=== PATIENT | female | born 1970 | race Caucasian/White ===

== ENCOUNTER 2023-05-03 20:18 | Outpatient (REF) | payer OTHER, SELFPAY ==
[2023-05-09 11:08] LABS: Age Gdln ACOG Testing Note (.); HPV Aptima Negative (Negative); IGP, Aptima HPV, rfx 16/18,45 Note (.)
== END 2023-05-03 20:19 | disposition home or self-care (01) ==
LOC: LAB 20:18
PROVIDERS: Visit Provider Obstetrics & Gynecology
DX: Z12.4 Encounter for screening for malignant neoplasm of cervix (principal)
CPT/HCPCS: 87624; G0145

== ENCOUNTER 2023-05-26 07:38 | Outpatient (OUT) | payer OTHER, SELFPAY ==
--- NOTE | 2023-05-26 07:40 | MM_ITS ---
Patient Name: BAIRON RUIZ MR#: [id number] : 1970 Exam Date: 05/26/2023 Ordering Doctor: DR Sal New . RADIOLOGY REPORT PROCEDURE: MM TOMOSYNTHESIS SCREENING BI COMPARISON: MG MAMM SCREEN 3D JARED CAD, 02/16/2022. MG MAMM SCREEN JARED W CAD, 01/14/2019. MG MAMM SCREEN JARED W CAD, 01/03/2017. MAMMO JARED DX, 12/21/2015. INDICATIONS: Screening Calculator Name NCI Breast Cancer Risk Assessment Tool 5 Year Breast Cancer Risk Not Reported. Lifetime Breast Cancer Risk Not Reported. Personal Breast Cancer No Personal Ovarian Cancer No Treatments None Family Cancers None LOCATION: [facility] BREAST COMPOSITION: Almost entirely fatty. FINDINGS: DIAGNOSTIC CATEGORY 2--BENIGN FINDING: RIGHT BREAST: No significant suspicious finding. Scattered benign-appearing lymph nodes are present. No significant change has occurred. LEFT BREAST: No significant suspicious finding. No significant change has occurred. RECOMMENDATIONS: ROUTINE MAMMOGRAM AND CLINICAL EVALUATION IN 12 MONTHS. PLEASE NOTE: A NORMAL MAMMOGRAM DOES NOT EXCLUDE THE POSSIBILITY OF BREAST CANCER. A CLINICALLY SUSPICIOUS PALPABLE LUMP SHOULD BE BIOPSIED. Dictated by: Dequan Vincent M.D. on 05/26/2023 at 10:53 Approved by: Dequan Vincent M.D. on 05/26/2023 at 10:57
--- OUTSIDE RECORDS SUMMARY | 2023-05-26 07:42 | XMS_ITS | CCD ---
Author Name Unknown Address [id number] [place] [address] Organization [facility] Care Team Providers Care Diazo Technician Name Role Phone TIFFANIE MASTERS Admitting Unavailable TIFFANIE MASTERS Attending Unavailable REQUEST, DR BURDICK LISTED Primary Care Unavaila ble Jamal Vincent Consulting Unavailable TIFFANIE MASTERS Consulting Unavailable JOSHUA ., DR CURIEL Admitting Unavailable JOSHUA ., DR CURIEL Attending Unavailable REQUEST, DR BURDICK LISTED Primary Care Unavaila ble JOSHUA ., DR CURIEL Consulting Unavailable Jamal Vincent Consulting Unavailable JOSHUA ., DR CURIEL Admitting Unavailable JOSHUA ., DR CURIEL Attending Unavailable REQUEST, DR BURDICK LISTED Primary Care Unavaila ble STANFORD, DR AZEB Hodges Consulting Unavailable JOSHUA ., DR CURIEL Consulting Unavailable JOSHUA ., DR CURIEL Admitting Unavailable JOSHUA ., DR CURIEL Attending Unavailable REQUEST, DR BURDICK LISTED Primary Care Unavaila ble JOSHUA ., DR CURIEL Consulting Unavailable Adali Jean MD Primary Care Provider Guerrero LICENSED SOCIAL WORKER, Tiffanie Beebe Unavailable TIFFANIE MASTERS Attending Unavailab MOISÉS Harry Attending Unavailable JOHNNY MATTSON Attending Unavailable OUMOU CORTES Attending Unavailable TIFFANIE MASTERS Referring Unavailab JOHNNY Dickerson Attending Unavailable JOHNNY MATTSON Referring Unavailable JOHNNY MATTSON Attending Unavailable Allergies Allergy Classification Reported Allergen(s) Allergy Type Date of Onset Reaction(s) Facility (1 source) bee venom Drug allergy (disorder) [facility] (1 source) Codeine Drug Allergy 1 [facility] (1 source) Hornet venom Drug allergy (disorder) [facility] (1 source) Nalbuphine Drug Allergy 5 [facility] (1 source) oxyCODONE Drug Allergy 5 [facility] (1 source) strawberry allergenic extract Drug Allergy [facility] (1 source) wasp venom Drug allergy (disorder) [facility] (1 source) yellow jacket venom protein Drug Allergy [facility] (7 sources) Honey bee venom Allergy to substance 0 Shortness of breath [facility] (7 sources) Nalbuphine Drug Allergy 9 [facility] (7 sources) Fulda Allergy to substance 0 Hives [facility] Medications Current Medications Medication Drug Class(es) Dates Sig (Normalized) Sig (Original) [id number] 200 actuat albuterol 0.09 mg/actuat metered dose inhaler (7 sources) beta2-Adrenergic Agonist Start: 08-19-2020 albuterol HFA 90 mcg/act inhaler every 4 (four) hours. 0 08/19/2020 Active DULoxetine 30 mg delayed release oral capsule (7 sources) Serotonin and Norepinephrine Reuptake Inhibitor Start: 05-09-2023 End: 05-08-2024 take 1 capsule by mouth in the morning DULoxetine (Cymbalta) [address] capsule Indications: Neurogenic pain Take 1 capsule (30 mg) by mouth in the morning. Do not crush or chew.. 30 capsule 2 05/09/2023 05/08/2024 Active [id number] 0.3 ml EPINEPHrine 1 mg/ml auto-injector (7 sources) alpha-Adrenergic Agonist, beta-Adrenergic Agonist, Catecholamine Start: 07-19-2021 EPINEPHrine (Epipen) 0.3 MG/0.3ML injection syringe 1 (one) time each day at the same time. 0 07/19/2021 Active etodolac 400 mg oral tablet (3 sources) Nonsteroidal Anti-inflammatory Drug Start: 02-01-2023 End: 05-17-2023 take 1 tablet by mouth twice daily as needed etodolac (Lodine) 400 MG tablet Take 400 mg by mouth 2 (two) times a day as needed 0 02/01/2023 05/17/2023 Discontinued gabapentin 300 mg oral capsule (3 sources) Anti-epileptic Agent Start: 08-29-2022 End: 05-17-2023 take 1 capsule by mouth once gabapentin (Neurontin) 300 MG capsule Indications: Spondylosis Take 1 capsule (300 mg) by mouth every 12 (twelve) hours. 60 capsule 0 08/29/2022 05/17/2023 Discontinued 3 ml liraglutide 6 mg/ml pen injector (3 sources) GLP-1 Receptor Agonist Start: 04-24-2023 End: 05-22-2023 inject 0.6 mg by subcutaneous injection once daily, then inject 1.2 mg by subcutaneous injection once daily, then inject 1.8 mg by subcutaneous injection once daily, then inject 2.4 mg by subcutaneous injection once daily Liraglutide -Weight Management (Saxenda) 18 MG/3ML solution pen-injector Indications: Morbid (severe) obesity due to excess calories (CMS/HCC) , Body mass index (BMI) 45.0-49.9, adult (CMS/HCC) Inject 0.6 mg under the skin Daily for 7 days, THEN 1.2 mg Daily for 7 days, THEN 1.8 mg Daily for 7 days, THEN 2.4 mg Daily for 7 days. 3 mL 0 04/24/2023 05/17/2023 Discontinued norethindrone 0.35 mg oral tablet (10 sources) Start: 01-17-2023 End: 05-02-2024 take 1 tablet by mouth once daily norethindrone (Nuha-BE) 0.35 MG tablet Indications: Encounter for surveillance of contraceptive pills Take 1 tablet (0.35 mg) by mouth 1 (one) time each day at the same time. 28 tablet 11 01/17/2023 01/17/2024 Active omeprazole 20 mg delayed release oral capsule (7 sources) Proton Pump Inhibitor Start: 05-12-2022 omeprazole (PriLOSEC) [address] capsule 1 (one) time each day at the same time. 0 05/12/2022 Active Completed/Discontinued Medications Medication Drug Class(es) Dates Sig (Normalized) Sig (Original) 2 ml sodium hyaluronate 8.4 mg/ml prefilled syringe (6 sources) Start: 05-22-2023 End: 05-22-2023 sodium hyaluronate (Gelsyn-3) injection 2 mL Start: 05-15-2023 End: 05-15-2023 sodium hyaluronate (Gelsyn-3 ) injection 2 mL Problems Active Problems Problem Classification Problem Date Documented Date Episodic/Chronic Allergic reactions (7 sources) Atopic dermatitis; Translations: [Intrinsic (allergic) eczema] Onset: 08-05-2022 08-05-2022 Chronic Anxiety disorders (7 sources) Anxiety; Translations: [Anxiety disorder, unspecified] Onset: 08-05-2022 08-05-2022 Chronic Menstrual disorders (11 sources) Excessive and frequent menstruation with regular cycle; Translations: [Menorrhagia] Onset: 11-09-2021 Chronic Osteoarthritis (3 sources) Osteoarthritis of right knee joint; Translations: [Unilateral primary osteoarthritis, right knee] 05-15-2023 Chronic Other acquired deformities (4 sources) Spondylolisthesis, site unspecified; Translations: [SPONDYLOLISTHESIS SITE UNSPECIFIED] Onset: 07-15-2022 Episodic Other female genital disorders (7 sources) Endometrial hyperplasia; Translations: [Endometrial hyperplasia, unspecified] Onset: 08-05-2022 08-05-2022 Chronic Other hereditary and degenerative nervous system conditions (7 sources) Restless legs; Translations: [Restless legs syndrome] Onset: 08-05-2022 08-05-2022 Chronic Other nutritional; endocrine; and metabolic disorders (7 sources) Obesity; Translations: [Obesity, unspecified] Onset: 08-05-2022 08-05-2022 Chronic Other screening for suspected conditions (not mental disorders or infectious disease) (1 source) Abnormal findings on diagnostic imaging of other specified body structures; Translations: [ABNORML FIND DX IMG OTH BODY STRUC] Onset: 11-13-2021 Chronic Other screening for suspected conditions (not mental disorders or infectious disease) (9 sources) Abnormal findings on diagnostic imaging of other parts of musculoskeletal system; Translations: [Encounter for screening mammogram for malignant neoplasm of breast] Onset: 02-07-2022 Episodic Spondylosis; intervertebral disc disorders; other back problems (20 sources) Spondylosis, unspecified; Translations: [Spondylosis] Onset: 02-10-2020 08-05-2022 Chronic Past or Other Problems Problem Classification Problem Date Documented Date Episodic/Chronic Immunizations and screening for infectious disease (1 source) Encounter for screening for human papillomavirus (HPV); Translations: [ENC SCREENING HUMAN PAPILLOMAVIRUS] Onset: 02-08-2022 Episodic Mood disorders (7 sources) Mood disorders Onset: 01-09-2023 01-09-2023 Other acquired deformities (7 sources) Retrolisthesis; Translations: [Spondylolisthesis, site unspecified] Onset: 08-05-2022 08-05-2022 Episodic Other connective tissue disease (7 sources) Other symptoms and signs involving the musculoskeletal system; Translations: [Other musculoskeletal symptoms referable to limbs] Onset: 08-05-2022 08-05-2022 Episodic Other connective tissue disease (7 sources) Fibromyalgia; Translations: [Fibromyalgia] Onset: 08-05-2022 08-05-2022 Episodic Other connective tissue disease (7 sources) Weakness of hand; Translations: [Other symptoms and signs involving the musculoskeletal system] Onset: 02-14-2023 02-14-2023 Episodic Other connective tissue disease (7 sources) Neurogenic pain; Translations: [Neuralgia and neuritis, unspecified] Onset: 02-14-2023 02-14-2023 Episodic Other non-traumatic joint disorders (7 sources) Pain in elbow; Translations: [Pain in right elbow] Onset: 02-14-2023 02-14-2023 Episodic Residual codes; unclassified (1 source) Asymptomatic menopausal state; Translations: [ASYMPTOMATIC MENOPAUSAL STATE] Onset: 02-21-2022 Episodic Spondylosis; intervertebral disc disorders; other back problems (7 sources) Low back pain; Translations: [Low back pain] Onset: 08-05-2022 08-05-2022 Episodic Results Test Name Value Interpretation Reference Range Facility L Inj/Asp: R kneeon 05-22-19 24 Reyna Crawford, ARRT 05/24/2023 11:25 AM L Inj/Asp: R knee on 05/22/2023 8:07 AM Indications: diagnostic evaluation Details: 22 G needle Medications: 2 mL sodium hyaluronate 16.8 MG/2ML Consent was given by the patient. [facility] No Panel Informationon 05-15 Medina Nichole, ARR T 05/17/2023 9:41 AM L Inj/Asp: R knee on 05/15/2023 8:28 AM Indications: pain Details: 21 G needle, lateral approach Medications: 2 mL sodium hyaluronate 16.8 MG/2ML Consent was given by the patient. [facility] MRI TRENT Espinoza CONon 2022 MRI TRENT PICHARDO W CON EXAMINATION: MRI TRENT Espinoza CON HISTORY: Monoarthritis ; acute lumbar pain; left leg pain, burning sensation, tingling; no known injury COMPARISON: MRI L-spine 08/21/2019 TECHNIQUE: Axial T1 and T2; Sagittal T1, T2, and STIR sequences. Images were performed before and after the administration of intravenous Dotarem contrast. FINDINGS: For the purposes of numbering, sagittal T2 image # 8 extends from the T12 vertebral body superiorly to the S3-S4 level inferiorly. PARASPINAL AREA: Normal with no visible mass. BONES: Right laminectomy of L4 and L5. Incidental, large hemangioma within L1 vertebral body. CORD/CAUDA EQUINA: Normal caliber, contour, and signal intensity. LUMBAR DISC LEVELS: 12-L1: No significant disc/facet abnormality, spinal stenosis, or foraminal stenosis. L1-L2: Early degenerative disc disease is present without focal protrusion or neural impingement. L2-L3: Mild central canal and bilateral foramen narrowing. Mild diffuse disc bulging, mild disc height reduction, and mild degenerative facet arthropathy. L3-L4: Mild central canal and mild-moderate bilateral foramen narrowing. Left paracentral disc extrusion 13 mm in width projecting 6 mm into the central canal and extending inferiorly to mid L4 vertebral body. The extrusion displaces the descending left L5 nerve root posteriorly. Mild disc at reduction. Moderate degenerative facet arthropathy bilaterally. L4-L5: Mild central canal and right foramen narrowing. Marked left foramen narrowing. Moderate diffuse disc bulging and moderate disc height reduction. Prior right laminectomy. Marked degenerative hypertrophy of left facet joint. L5-S1: No significant central canal narrowing. Mild right foramen narrowing. Moderate-marked left foramen narrowing. Mild diffuse disc bulging without significant disc height reduction. Prior right laminectomy. Moderate degenerative facet hypertrophy on left. IMPRESSION: 1. 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 2. L4-L5 marked left foramen narrowing. 3. L5-S1 moderate marked left foramen narrowing. Electronically authenticated by: JAMAL VINCENT Date: 2022-07-15 08:53 Normal [facility] MAMM SCREEN 3D JARED CADon 02-16-2022 MG MAMM SCREEN 3D JARED CAD Patient: LORRAINE GAGNON Exam Date: 02/16/2022 : 1970 Gender:F Ordering : DR MOISÉS LEWIS . Admission #: [id number] Family : Order #: [id number] CLICK HERE TO VIEW EXAM RADIOLOGY REPORT PROCEDURE: MAMMOGRAM SCREENING 3D BILATERAL CAD COMPARISON: MG MAMM SCREEN JARED W CAD, 01/03/2017. MG MAMM SCREEN JARED W CAD, 01/14/2019. INDICATIONS: Screening mammography Calculator Name NCI Breast Cancer Risk Assessment Tool 5 Year Breast Cancer Risk Not Reported. Lifetime Breast Cancer Risk Not Reported. Personal Breast Cancer No Personal Ovarian Cancer No Treatments None Family Cancers None LOCATION: [facility] BREAST COMPOSITION: Almost entirely fatty. FINDINGS: DIAGNOSTIC CATEGORY 1--NEGATIVE. NO CHANGE FROM COMPARISON ASSESSMENT. Scattered benign-appearing calcifications are present. Scattered benign-appearing lymph nodes are present. RIGHT BREAST: No significant suspicious finding. LEFT BREAST: No significant suspicious finding. RECOMMENDATIONS: ROUTINE MAMMOGRAM AND CLINICAL EVALUATION IN 12 MONTHS. PLEASE NOTE: A NORMAL MAMMOGRAM DOES NOT EXCLUDE THE POSSIBILITY OF BREAST CANCER. A CLINICALLY SUSPICIOUS PALPABLE LUMP SHOULD BE BIOPSIED. Dictated by: Azeb Sykes MD on 02/16/2022 at 10:37 Approved by: Azeb Sykes MD on 02/16/2022 at 10:38 [facility] XR DEXA BONE DENSITYon 02-16 XR DEXA BONE DENSITY EXAMINATION: XR DEXA BONE DENSITY, 02/16/2022 8:05 AM EST HISTORY: Menopause present COMPARISON: None. TECHNIQUE: Dual-energy X-ray absorptiometry (DEXA) bone density study performed for the axial skeleton. FINDINGS: Total femoral bone mineral density measures 1.176 g/sq cm. T score 1.3. WHO classification: Normal Lowest bone mineral density right femoral neck measures 1.013 g/sq cm. T score -0.2. WHO classification: Normal IMPRESSION: Normal bone mineral density. Low fracture risk Electronically authenticated by: AZEB SYKES Date: 2022-02-16 10:04 [facility] PAP ACOG PANEL 1: 30 to 65on 02-13-2022 . . Normal [facility] Comment on above: Result Comment: Perf ormed at: BA Performed By: #### [id number] #### [facility] [address] [place] [address] Dr. Wendy Hughes Age Gdln ACOG Testing 30-65 Normal [facility] Comment on above: Performed By: #### [id number] #### [facility] [address] [place] [address] Dr. Wendy Hughes DIAGNOSIS: Comment Normal [facility] Comment on above: Result Comment: NEGA TIVE FOR INTRAEPITHELIAL LESION OR MALIGNANCY. Performed at: BA Performed By: #### [id number] #### [facility] [address] [place] [address] Dr. Wendy Hughes HPV Aptima Negative Normal Negative [facility] Comment on above: Result Comment: This nucleic acid amplification test detects fourteen high-risk HPV types (16,18,31,33,35,39,45,51,52,56,58,59,66,68) without differentiation. Performed at: =G Performed By: #### [id number] #### [facility] [address] [place] [address] Dr. Wendy Hughes HPV Genotype Reflex Comment Normal [facility] Comment on above: Result Comment: Crit eria not met, HPV Genotype not performed. Performed at: BA Performed By: #### [id number] #### [facility] [address] [place] [address] Dr. Wendy Hughes Methodology: Comment [facility] Comment on above: Result Comment: This liquid based ThinPrep(R) pap test was screened with the use of an image guided system. Performed at: WB Performed By: #### [id number] #### [facility] [address] [place] [address] Dr. Wendy Hughes Note: Comment Normal [facility] Comment on above: Result Comment: The Pap smear is a screening test designed to aid in the detection of premalignant and malignant conditions of the uterine cervix. It is not a diagnostic procedure and should not be used as the sole means of detecting cervical cancer. Both false-positive and false-negative reports do occur. . Performed at: WB Performed By: #### [id number] #### [facility] [address] [address] [address] Wendy Hughes Performed by: Comment Normal [facility] Comment on above: Result Comment: Mary Hernandez, Diecast Machine Operator Performed at: Performed By: #### [id number] #### [facility] [address] [place], [place] [address] Dr. Wendy Hughes Specimen adequacy: Comment Normal [facility] Comment on above: Result Comment: Sati sfactory for evaluation. Endocervical and/or squamous metaplastic cells (endocervical component) are present. Performed at: Performed By: #### [id number] #### [facility] [address] [place], [place] [address] Dr. Wendy Hughes US PELVIS AND TRANSVAGon US PELVIS AND TRANSVAG EXAMINATION: US PELVIS AND TRANSVAG HISTORY: Excessive and frequent menstruation COMPARISON: Ultrasound pelvis 08/14/2020 TECHNIQUE: Transabdominal and transvaginal sonographic examination. FINDINGS: UTERUS: Normal size and appearance. Uterus size: 8.2 x 4.7 x 5.6 cm ENDOMETRIUM: Thickened, but homogeneous echotexture. Endometrial thickness: 17 mm RIGHT OVARY: Normal size and appearance. Duplex Doppler demonstrates normal waveform and flow; resistive index 0.7. Ovary size: 1.9 x 1.1 x 1.9 cm LEFT OVARY: Not seen. No suspicious adnexal findings. CUL-DE-SAC: Unremarkable. No significant free fluid. BLADDER: Unremarkable. OTHER: None. IMPRESSION: 1. Limited examination due to patient body habitus. 2. Thickened endometrium, nonspecific but suggestive of endometrial hyperplasia. Electronically authenticated by: JAMAL VINCENT Date: 2021-11-09 11:40 Normal [facility] XR Foot Complete Right*on XR Foot Complete Right* FINDINGS: Comparison made with prior examination of September 17, 2021. Increased periosteal reaction, normal anatomic alignment [proximal 4th metatarsal mid shaft fracture. No additional fractures. IMPRESSION: 1. Normal alignment, healing 4th metatarsal bone fracture. Report reported and signed by Steven Jackson on 10/20/2021 1526 Normal [facility] Respiratory Equipment Assistant Q - COMPREHENSIVE METABOLIC PANEL W/EGFRon 09-17-2021 Albumin [Mass/Vol] 4.1 g/dL Normal 3.6-5.1 [facility] Specialist Comment on above: Order Comment: [facility] Testing performed at: [employer] [facility], [address] [place] [address], [address] [place] [address], [address] [place] [address], Rope Tier: Praful Mooney MD [facility] Collection Date/Time: [facility] Results Received Date/Time: [facility] Reported Date/Time: FASTING: NO Performed By: #### 9 [id number], [id number] #### [facility] Default [address] [place] [address] Albumin/Globulin [Mass ratio] 1.7 {ratio} Normal 1.0-2.5 [facility] Specialist Comment on above: Order Comment: [facility] performed at: [employer] [employer] [facility], [address] [place] [address], [address] [place] [address], [address] [place] [address], Rope Tier: Praful Mooney MD [facility] Collection Date/Time: [facility] Results Received Date/Time: [facility] Reported Date/Time: FASTING: NO Performed By: #### 9 [id number], [id number] #### [facility] Default [address] [place] [address] ALP [Catalytic activity/Vol] 74 U/L Normal 37-153 [facility] Specialist Comment on above: Order Comment: [facility] performed at: [employer] [employer] [facility], [address] [place] [address], [address] [place] [address], [address] [place] [address], Rope Tier: Praful Mooney MD [facility] Collection Date/Time: [facility] Results Received Date/Time: [facility] Reported Date/Time: FASTING: NO Performed By: #### 9 [id number], [id number] #### [facility] Default [address] [place] [address] ALT [Catalytic activity/Vol] 38 U/L High 6-29 [facility] Respiratory Equipment Assistant Comment on above: Order Comment: [facility] performed at: [employer] [employer] [facility], [address] [place] [address], [address] [place] [address], [address] [place] [address], Rope Tier: Praful Mooney MD [facility] Date/Time: [facility] Results Received Date/Time: [facility] Reported Date/Time: FASTING: NO Performed By: #### 9 [id number], [id number] #### [facility] Default [address] [place] [address] AST [Catalytic activity/Vol] 30 U/L Normal 10-35 [facility] Comment on above: Order Comment: [facility] performed at: [employer] [employer] [facility], [address] [place] [address], [address] [place] [address], [address] [place] [address], Rope Tier: Praful Mooney MD [facility] Date/Time: [facility] Results Received Date/Time: [facility] Reported Date/Time: FASTING: NO Performed By: #### 9 [id number], [id number] #### [facility] Default [address] [place] [address] Bilirubin [Mass/Vol] 0.6 mg/dL Normal 0.2-1.2 [facility] Comment on above: Order Comment: [facility] performed at: [employer] [facility], [address] [place] [address], [address] [place] [address], [address] [place] [address], Rope Tier: Praful Mooney MD [facility] Date/Time: [facility] Results Received Date/Time: [facility] Reported Date/Time: FASTING: NO Performed By: #### 9 [id number], [id number] #### [facility] Default [address] [place] [address] BUN/CREA 14 NOT APPLICABLE Normal 6-22 [facility] Comment on above: Order Comment: [facility] performed at: [employer] [facility], [address] [place] [address], [address] [place] [address], [address] [place] [address], Rope Tier: Praful Mooney MD [facility] Date/Time: [facility] Results Received Date/Time: [facility] Reported Date/Time: FASTING: NO Performed By: #### 9 [id number], [id number] #### [facility] Default [address] [place] [address] Calcium [Mass/Vol] 9.0 mg/dL Normal 8.6-10.4 [facility] Comment on above: Order Comment: [facility] performed at: [employer] [employer] [facility], [address] [facility], [address] [place] [address], [address] [place] [address], Rope Tier: Praful Mooney MD [facility] Collection Date/Time: [facility] Results Received Date/Time: [facility] Reported Date/Time: FASTING: NO Performed By: #### 9 [id number], [id number] #### [facility] Default [address] [place] [address] Chloride [Moles/Vol] 108 mmol/L Normal 98-110 [facility] Comment on above: Order Comment: [facility] performed at: [employer] [facility], [address] , [address] [place] [address], [address] [place] [address], Rope Tier: Praful Mooney MD [facility] Date/Time: [facility] Results Received Date/Time: [facility] Reported Date/Time: FASTING: NO Performed By: #### 9 [id number], [id number] #### [facility] Default [address] [place] [address] CO2 [Moles/Vol] 26 mmol/L Normal 20-32 [facility] Comment on above: Order Comment: [facility] performed at: [employer] [employer] [facility], [address] , [address] [place] [address], [address] [place] [address], Rope Tier: Praful Mooney MD [facility] Date/Time: [facility] Results Received Date/Time: [facility] Reported Date/Time: FASTING: NO Performed By: #### 9 68T, [id number] #### [facility] Default [address] [place] [address] Creatinine [Mass/Vol] 1.00 mg/dL Normal 0.50-1.05 [facility] Specialist Comment on above: Order Comment: [facility] performed at: [employer] [facility], [address] [facility], [address] [place] [address], [address] [place] [address], Rope Tier: Praful Mooney MD [facility] Collection Date/Time: [facility] Results Received Date/Time: [facility] Reported Date/Time: FASTING: NO Result Comment: For patients >49 years of age, the reference limit for Creatinine is approximately 13% higher for people identified as -Ivorian. Performed By: #### 9 68T, [id number] #### [facility] [address] [place] [address] eGFRAA ([facility]) 76 mL/min/1.73m2 Normal > OR = 60 [facility] Specialist Comment on above: Order Comment: [facility] Testing performed at: [employer] [facility], [address] [facility], [address] [place] [address], [address] [place] [address], Rope Tier: Praful Mooney MD [facility] Collection Date/Time: [facility] Results Received Date/Time: [facility] Reported Date/Time: FASTING: NO Performed By: #### 9 68T, [id number] #### [facility] Default [address] [place] [address] eGFRNAA ([facility]) 66 mL/min/1.73m2 Normal > OR = 60 [facility] Comment on above: Order Comment: [facility] Testing performed at: [employer] [facility], [address] [place] [address], [address] [place] [address], [address] [place] [address], Rope Tier: Praful Mooney MD [facility] Collection Date/Time: [facility] Results Received Date/Time: [facility] Reported Date/Time: FASTING: NO Performed By: #### 9 68T, [id number] #### [facility] Default [address] [place] [address] Globulin (S) [Mass/Vol] 2.4 g/dL Normal 1.9-3.7 [facility] Respiratory Equipment Assistant Comment on above: Order Comment: [facility] Testing performed at: [employer] [facility], [address] [place] [address], [address] [place] [address], [address] [place] [address], Rope Tier: Praful Mooney MD [facility] Collection Date/Time: [facility] Results Received Date/Time: [facility] Reported Date/Time: FASTING: NO Performed By: #### 9 68T, [id number] #### [facility] Default [address] [place] [address] Glucose [Mass/Vol] 90 mg/dL Normal 65-139 Miranda rn [place] Respiratory Equipment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 AUTOGRAFT, PARTIAL MEDIAL MENISECTOMY AND PARTIAL LATERAL MENISCECTOMY Primary Procedure Yes Primary Surgeon Johnny Mattson DO Start 04/17/19 08:33:00 Stop 04/17/19 10:53:00 Anesthesia Type General Surgical Service Orthopedics Wound Class 1 - Clean Last Modified By: Iris Arteaga RN 04/17/19 11:03:28 General Case Data FT Pre-Care Text: Classifies surgical wound, implements aseptic technique, initiates traffic control Entry 1 Case Information OR OR 7 FT Case Level Level 4 Wound Class 1 - Clean Specialty Orthopedics ASA Class 2 Preop Diagnosis RIGHT KNEE ACL GRAFT Postop Same As Preop No TEAR, MEDIAL MENISCAL TEAR Postop Diagnosis RIGHT KNEE ACL GRAFT Outcomes Met? Yes TEAR, MEDIAL MENISCAL TEAR, LATERAL MENISCAL TEAR Last Modified By: Iris Arteaga RN 04/17/19 11:03:25 Post-Care Text: The patient is free from signs and symptoms of infection Skin Assessment (Pre Procedure) FT Pre-Care Text: Implements protective measures to prevent skin/ tissue injury due to thermal or mechanical sources Evaluates for signs and symptoms of physical injury to skin and tissue Entry 1 Skin Integrity Other/See Comments Skin Abnormality Yes Abnormality Location reddened area on inside Outcomes Met? Yes bilateral upper thighs/groin area Last Modified By: Iris Arteaga RN 04/17/19 08:37:59 Post-Care Text: The patient is free from signs and symptoms of injury caused by extraneous objects General Comments: patient with underwear on, surgeon jacinto. Jack hubbard rn Patient Positioning FT Pre-Care Text: Identifies physical alterations that require additional precautions for procedure-specific positioning, verifies presence of prosthetics or corrective devices, positions the patient, evaluates the patient for signs and symptoms of injury as a result of positioning Entry 1 Procedure KNEE ARTHROSCOPY W/ ACL Additional arthroscopy rebolledo on REPAIR(Right) Information right leg Body Position Supine Feet Uncrossed? Yes Left Arm Position Extended on Padded Arm Right Arm Position Extended on Padded Arm Board Board Left Leg Position Dangling Right Leg Position Held on Field Positioning Device Well Leg Rebol[place]o, Safety Press Points Checked Yes Strap, Pillow Under Head Large, Arthroscopy Leg Rebolledo By Gita Silvestre, Outcomes Met? Yes Johnny Mattson DO, Wilhelm COMMODITY BUYER, Chandler Thomas RN, Iris Beebe Last Modified By: Iris Arteaga RN 04/17/19 08:42:25 Post-Care Text: The patient is free from signs and symptoms of injury related to positioning Patient Care Devices FT Pre-Care Text: Implements protective measures to prevent skin/ tissue injury due to thermal or mechanical sources Entry 1 Entry 2 Entry 3 Equipment Type ARTHREX GENERATOR ARTHREX DUALWAVE ARTHROSCOPY KNEE REBOLLEDO UNIT[F] IRRIGATION PUMP[F] [F] Equipment Number cart 1 cart 1 Equipment Setting Outcomes Met? Yes Yes Yes Last Modified By: Chandler RN, Iris Arteaga RN, Iris Pierce RN 04/17/19 08:44:53 04/17/19 08:44:53 04/17/19 08:44:53 Entry 4 Entry 5 Entry 6 Equipment Type CAUTERY UNIT[F] MISTRAL FORCED AIR MONITOR CHARGE SURGERY WARMING SYSTEM UNIT[F] [F] Equipment Number [id number] Equipment Setting Outcomes Met? Yes Yes Yes Last Modified By: Chandler RN, Iris Arteaga RN, Iris Pierce RN 04/17/19 10:19:49 04/17/19 08:44:53 04/17/19 08:44:53 Entry 7 Entry 8 Entry 9 Equipment Type BEVERLEY SUCTION UNIT [F] ORTHO ARTHREX ABRADER SONOSITE ULTRASOUND SYSTEM[F] UNIT[F] Equipment Number 1 cart 1 Equipment Setting Outcomes Met? Yes Yes Yes Last Modified By: Chandler RN, Iris Arteaga RN, Iris Pierce RN 04/17/19 08:44:53 04/17/19 08:44:53 04/17/19 08:44:53 Entry 10 Entry 11 Entry 12 Equipment Type TOURNIQUET HAWA [F] VIDEO SYSTEM[F] MINI C-ARM[F] Equipment Number A ROOM 7 Equipment Setting Outcomes Met? Yes Yes Yes Last Modified By: Chandler RN, Iris Arteaga RN, Iris Pierce RN 04/17/19 08:44:53 04/17/19 08:44:53 04/17/19 08:44:53 Post-Care Text: The patient is free from signs and symptoms of injury caused by extraneous objects Transport To OR FT Pre-Care Text: Transports according to individual needs. Evaluates for signs and symptoms of skin and tissue injury as a result of transfer or transport Entry 1 Via Cart By Iris Arteaga RN Safety Precautions Side Rails Up Outcomes Met? Yes Last Modified By: Iris Arteaga RN 04/17/19 08:48:34 Post-Care Text: The patient is free from signs and symptoms of injury related to transfer/transport Cautery FT Pre-Care Text: Implements protective measures to prevent injury due to electrical sources, and evaluates for signs and symptoms of electrical injury Entry 1 ESU Identification ESU Settings Cut 40 Coag 40 ESU Grounding Pad Site Left Thigh Hair Removal Pad No Site Pre Pad Site Clear and Intact Post Pad Site Clear and Intact Condition Condition Grounding Pad Iris Arteaga RN Placed By Outcomes Met? Yes Last Modified By: Iris Arteaga RN 04/17/19 09:02:55 Post-Care Text: The patient if free from signs and symptoms of electrical injury Counts Verification FT Pre-Care Text: Performs required counts Entry 1 Entry 2 Procedure(s) KNEE ARTHROSCOPY W/ ACL KNEE ARTHROSCOPY W/ ACL REPAIR(Right) REPAIR(Right) Type Initial Final Items Sponges, Sharps Sponges, Sharps Status Correct Correct Time 04/17/19 10:46:00 By Iris Arteaga RN, Coy RN, Emily A, McClain CST, Sharron Antunez CST, Sharron Beebe Outcomes Met? Yes Yes Last Modified By: Iris Arteaga RN, RN, Emily A 04/17/19 08:51:14 04/17/19 10:46:44 Post-Care Text: The patient is free from signs and symptoms of injury caused by extraneous objects Skin Prep FT Pre-Care Text: Performs skin preparations Entry 1 Entry 2 Procedure KNEE ARTHROSCOPY W/ ACL KNEE ARTHROSCOPY W/ ACL REPAIR(Right) REPAIR(Right) Prep Area entire leg from upper entire leg from upper thigh to ankle - RIGHT thigh to ankle - RIGHT LEG LEG Prep Agents Chloraprep/Dry Prior to Alcohol/Dry Prior to Draping Draping Start Dry Time 01/08/20 08:20:00 Stop Dry Time 04/17/19 08:23:00 Hair Removal Methods Not Indicated Not Indicated Site By Shahbaz PARSON, William Hartmann CST, William Outcomes Met? Yes Yes Last Modified By: Iris Arteaga RN, RN, Emily A 04/17/19 08:52:31 04/17/19 08:52:31 Post-Care Text: The patient is free from signs and symptoms of infection Departure From OR FT Pre-Care Text: Transports according to individual needs. Evaluates for signs and symptoms of skin and tissue injury as a result of transfer or transport. Entry 1 Via Cart Safety Precautions Side Rails Up PostOp Destination PACU Transported By Iris Arteaga RN Patient Status Stable Skin. Condition Dry, Other/See Comments Description RIGHT KNEE INCISION, OTHER SKIN UNCHANGED FROM PREVIOUSLY Airway Maintenance Oxygen in Use? Yes Airway Device Simple Mask Flow Rate 8 L/min Outcomes Met? Yes Last Modified By: Iris Arteaga RN 04/17/19 11:03:04 Post-Care Text: The patient is free from signs and symptoms of injury related to transfer/transport General Comments: REPORT GIVEN TO WORKFORCE STAFFING ADVISORRN. Jack HUBBARD RN Dressing/Packing FT Pre-Care Text: Administers care to wound sites Entry 1 Type Dressing Site and Details mastisol, 1/4 steri strips, baci with adaptic, 4x4, abd x2, 6in cast padding x1, 4in cast padding x2 and double 6in luly TO RIGHT KNEE AND IMMOBILIZER Outcomes Met? Yes Last Modified By: Iris Arteaga RN 04/17/19 11:02:57 Post-Care Text: The patient is free from signs and symptoms of infection Medication Administration FT Pre-Care Text: Verifies allergies, administers prescribed medications and solutions, administers prescribed antibiotic therapy and immunizing agents as ordered, evaluates response to medications Administers prescribed medications and solutions Entry 1 Route of Admin Field Expiration Date Yes Verified Outcomes Met? Yes Last Modified By: Iris Arteaga RN 04/17/19 08:53:50 Post-Care Text: The patient received appropriate medication(s) safely administered during the perioperative period For Shultz-Juanjo please see scanned medication reconcilliation form for medications used at the field during the procedure. Tourniquet FT Pre-Care Text: Implements protective measures to prevent skin/tissue injury due to mechanical sources Entry 1 Tourniquet Type TOURNIQUET CUFF PURPLE Setting 300 mmHg 34 X 4 [[id number]][F] Equipment Number A Placement Right Upper Thigh Cuff Size 34 Padding Under Cuff Yes Applied Applied By Johnny Mattson DO Skin Assessment Unremarkable Before Inflation Skin Assessment Unremarkable After Inflation Tourniquet Times Inflated 04/17/19 08:33:00 Deflated 04/17/19 10:37:00 Total Time 124 minute(s) Outcomes Met? Yes Last Modified By: Iris Arteaga RN 04/17/19 10:38:38 Post-Care Text: The patient is free from signs and symptoms of injury caused by extraneous objects General Comments: 1033- DR. MATTSON MADE AWARE THAT TOURNIQUET TIME WAS 120MINUTES, STATED UNDERSTANDING. Jack HUBBARD RN Communication FT Pre-Care Text: Maintains patient's dignity and privacy,and maintains patient confidentiality Entry 1 Communication Phone Communication By Iris Arteaga RN Date and Time 04/17/19 10:43:00 Surgery Update CALL PLACED TO NAVIGATOR [id number] AWA PER SURGEON REQUEST TO UPDATE BROTHER THAT SURGEON WILL BE CLOSING SOON AND PATIENT DOING WELL Outcomes Met? Yes Last Modified By: Iris Arteaga RN 04/17/19 10:49:37 Post-Care Text: The patient's right to privacy is maintained Implant Log FT Pre-Care Text: Records devices implanted during the operative or invasive procedure Entry 1 Entry 2 Entry 3 Procedure KNEE ARTHROSCOPY W/ ACL KNEE ARTHROSCOPY W/ ACL KNEE ARTHROSCOPY W/ ACL REPAIR(Right) REPAIR(Right) REPAIR(Right) Implant/Explant Implant Implant Implant Implant Identification FT Description TIGHTROPE ABS BUTTON TIGHTROPE ABS IMPLANT ACL TIGHTROPE [AR-1588TB-4][F] [[id number]][F] [AR-[id number]][F] Serial Number Lot Number [id number] Load Number Blow Up Operator FT-ARTHREX FT-ARTHREX FT-ARTHREX Catalog ?# [id number] [F] [id number] [F] [id number] [F] Size 14MM Expiration Date 12/09/23 11/08/23 01/08/24 Manufactured Date Materials Unique Device Identifier (JADA) Human Readable Barcode Machine Readable Barcode Usage Data FT Implant Site Knee R Knee R Knee R Implant Site Comment Quantity 1 1 1 Implant/Explant Date Implanted By Johnny Mattson DO, DO, Jason A Brown DO, Jason A Explant Reason Biological Implants Biological Source Donor Number MR Classification Temperature Reconstitution Method Outcomes Met? Yes Yes Yes Blow Up Operator Model Number Last Modified By: Iris Arteaga RN, RN, Emily A Coy RN, Emily A 04/17/19 09:34:11 04/17/19 09:34:11 04/17/19 09:34:11 Entry 4 Entry 5 Procedure KNEE ARTHROSCOPY W/ ACL KNEE ARTHROSCOPY W/ ACL REPAIR(Right) REPAIR(Right) Implant/Explant Implant Implant Implant Identification FT Description KIT ACL BACKUP FIXATION BIOLOGICAL PLANT OPERATOR BUTTON REPAIR [AR-[id number]][F] [[id number]][F] Serial Number Lot Number [id number] Load Number Blow Up Operator FT-ARTHREX FT-ARTHREX Catalog ?# [id number] [F] [id number] [F] Size 4.75 X 19.1MM 5 X 20MM Expiration Date 09/07/20 11/08/19 Manufactured Date Materials Unique Device Identifier (JADA) Human Readable Barcode Machine Readable Barcode Usage Data FT Implant Site Knee R Knee R Implant Site Comment Quantity 1 1 Implant/Explant Date Implanted By Johnny Mattson DO, DO, Jason A Explant Reason Biological Implants Biological Source Donor Number MR Classification Temperature Reconstitution Method Outcomes Met? Yes Yes Blow Up Operator Model Number Last Modified By: Iris Arteaga RN, RN, Emily A 04/17/19 09:34:11 04/17/19 10:21:37 Post-Care Text: The patient is free from signs and symptoms of injury caused by extraneous objects X-Rays and Images FT Pre-Care Text: Assess history of previous radiation exposure and implements protective measures Entry 1 X-Ray Type Mini C-Arm mGY 8.7469 Gy cm2 0.5286 Outcomes Met? Yes Last Modified By: Iris Arteaga RN 04/17/19 10:27:37 Post-Care Text: The patient is free from signs and symptoms of radiation injury Temperature Control Entry 1 Temperature Control BLANKET MISTRAL AIR Quantity 1 Aid TORSO [[id number]][F] Fluid/[place] Unit Mistral warming system Setting HIGH/43 Body Site Upper anterior torso Last Modified By: Iris Arteaga RN 04/17/19 08:55:22 Case Comments Finalized By: Adali Valle CST Document Signatures Signed By: Iris Arteaga RN 04/17/19 11:03 Adali Valle CST 04/18/19 14:22 Normal [facility] Operative Reporton 0 Operative Report Date of Surgery: 04/17/2019 SURGEON: Yehuda Fortune Jr., D.O. PREOPERATIVE DIAGNOSIS: Control of postoperative pain POSTOPERATIVE DIAGNOSIS: Control of postoperative pain OPERATION: Right combined fascia iliaca and popliteal (sciatic) peripheral nerve blocks, utilizing ultrasound guidance and nerve stimulator ANESTHESIA: Local with monitored anesthesia care PROCEDURE: The patient was interviewed and examined. The anesthesia options were discussed including combined fascia iliaca and popliteal (sciatic) nerve blocks for postoperative analgesia. The discussion included the procedure, risks, benefits, and alternatives to the procedure. The patient's questions were all answered and the patient elected to proceed with the combined fascia iliaca and popliteal (sciatic) nerve blocks for postoperative pain relief. The patient was placed on the monitors including electrocardiogram, noninvasive blood pressure machine and pulse oximetry. I.V. sedation was then administered with a total I.V. administration of midazolam 4 mg. The groin area was prepped with Chloraprep and sterilely draped. The anatomy was identified with ultrasound and then under ultrasound guidance the fascia iliaca plane was identified with a 21 gauge 100 mm Pajunk needle. After attempting aspiration of blood a solution of Naropin 0.2% containing 3 mg of Decadron, total volume of 35 mL was slowly injected with frequent aspirations without signs or symptoms of intravascular injection. Next, the patient's lateral thigh was prepped and draped in a sterile fashion and utilizing ultrasound and nerve stimulator, the distal sciatic nerve was located with 21 gauge 100 mm Pajunk needle. Loss of twitch was observed at 0.5 milliamps and a solution of Naropin 0.3% containing 3 mg of Decadron, total volume of 15 mL was easily injected. After the procedure there were signs and symptoms that the block was becoming effective. The patient then proceeded to undergo general anesthesia for the proposed procedure. Yehuda Fortune Jr., D.O. gls Dictated: 04/17/2019 #[id number] Typed: 04/17/2019 #[id number] cc: Yehuda Fortune Jr., D.O. Normal [facility] Comment on above: Result Comment: Elec tronically Signed By: Yehuda Fortune JR, DO.br\Date and Time Signed: 04/18/19 09:08 EST Inpatient Patient Summaryon 04-17-2019 Inpatient Patient Summary [place] [address] [facility] Clinical Discharge Instructions PERSON INFORMATION Name: [facility] Admitting Physician: Johnny Mattson DO Attending Physician: Johnny Mattson DO PCP: FARIDA ALFORD, ADALI Discharge Diagnosis: Comment: PATIENT EDUCATION INFORMATION Instructions: Post Op Patient Instructions - FT (Custom); Knee Cryocuff Patient Instructions - FT (CUSTOM); Jus Mattson - ACL Reconstruction/Meniscu s Repair (Custom) Medication Leaflets: Follow up: MEDICATION LIST New Medications [facility] [address], [address], [place] [id number], [phone] acetaminophen-oxycodon e (Percocet 325 mg-5 mg Tab) 1-2 tab(s) Oral q4hr; as needed as needed for pain. Refills: 0. aspirin (Aspirin 81 mg Tab-EC) 2 Tablets By Mouth every day for 21 Days. Refills: 0. docusate (Colace 100 mg Cap) 1 Capsules By Mouth 2 times a day as needed for constipation. Refills: 0. naproxen (naproxen 500 mg Tab) 1 Tablets By Mouth 2 times a day. with food. Refills: 0. Medications to Continue with No Changes Other Medications aspirin-caffeine (Bety Back & Body 500 mg-32.5 mg oral tablet) 1 tab By Mouth every 6 hours. cyclobenzaprine (cyclobenzaprine 10 mg Tab) 1 Tablets By Mouth 2 times a day as needed for spasm. ethinyl estradiol-norethindron e (Alyacen ) 1 Tablets By Mouth every day. gabapentin (gabapentin 300 mg Cap) 1 Capsules By Mouth 2 times a day. ibuprofen 800 Milligram By Mouth every day as needed as needed for pain. Comment: Brandon Carrington [facility] Main OR PACU I [facility] Main OR PACU I Record PACU Phase I Document Type FT Summary Primary Physician: Johnny Mattson DO Finalized Date/Time: 04/17/19 12:03:04 Pt. Name: YONASLORRAINE/Sex: 1970 Female Med Rec #: [id number] Physician: Johnny Mattson DO Financial #: [id number] Pt. Type: A Room/Bed: [facility] Admit/Disch: 04/17/19 05:44:44 - Institution: Case Times PACU I FT Pre-Care Text: Identifies barriers to communication and implements measures to provide psychological support Develops individualized plan of care, and ensures continuity of care Maintains patient's dignity and privacy, and maintains patient confidentiality Identifies and reports philosophical, cultural, and spiritual beliefs and values Identifies individual values and wishes concerning care Implements aseptic technique, and administers prescribed antibiotic therapy and immunizing agents as ordered Evaluates postoperative tissue perfusion Implements thermoregulation measures, and monitors body temperature Evaluates postoperative respiratory status Evaluates postoperative cardiac status Evaluates postoperative neurological status Assesses pain control, collaborated in initiating patient-controlled analgesia and implements alternative methods of pain control Verifies allergies, administers prescribed medications and solutions, evaluates response to medications Entry 1 In PACU I 04/17/19 11:00:00 Discharge from PACU 04/17/19 11:54:00 I Outcomes Met? Yes Last Modified By: Marie Garrison RN 04/17/19 12:02:57 Post-Care Text: The patient demonstrates knowledge of the expected response to the operative or invasive procedure The patient's care is consistent with the individualized perioperative plan of care The patient's right to privacy is maintained The patient's value system, lifestyle, ethnicity, and culture are considered, respected, and incorporated into the perioperative plan of care The patient participates in decisions affecting his or her perioperative plan of care The patient is free from signs and symptoms of infection The patient has wound/tissue perfusion consistent with or improved from baseline levels established preoperatively The patient is at or returning to normothermia at the conclusion of the immediate postoperative period The patient's respiratory function is consistent with or improved from baseline levels established preoperatively The patient's cardiovascular status is consistent with or improved from baseline levels established preoperatively The patient's cardiovascular status is consistent with or improved from baseline levels established preoperatively The patient demonstrates and/or reports adequate pain control throughout the perioperative period The patient received appropriate medication(s), safely administered during the perioperative period Acuity Level PACU I FT Entry 1 Start Time 04/17/19 11:00:00 Stop Time 04/17/19 11:54:00 Acuity Level Acuity Level I Last Modified By: Marie Garrison RN 04/17/19 12:03:03 Finalized By: Marie Garrison RN Document Signatures Signed By: Marie Garrison RN 04/17/19 12:03 Normal [facility] Main OR PACU II [facility] Main OR PACU II Record PACU Phase II Document Type FT Summary Primary Physician: Johnny Mattson DO Finalized Date/Time: 04/17/19 21:31:22 Pt. Name: YONASLORRAINE/Sex: 1970 Female Med Rec #: [id number] Physician: Johnny Mattson DO Financial #: [id number] Pt. Type: Room/Bed: [place] [address] Admit/Disch: 04/17/19 05:44:44 - 04/17/19 15:20:00 Institution: Case Times PACU II FT Pre-Care Text: Identifies barriers to communication and implements measures to provide psychological support and determines knowledge level Develops individualized plan of care, and ensures continuity of care Maintains patient's dignity and privacy, and maintains patient confidentiality Identifies and reports philosophical, cultural, and spiritual beliefs and values Identifies individual values and wishes concerning care administers prescribed antibiotic therapy and immunizing agents as ordered, Evaluates postoperative tissue perfusion Implements thermoregulation measures, and monitors body temperature Evaluates postoperative respiratory status Evaluates postoperative cardiac status Evaluates postoperative neurological status Assesses pain control, collaborated in initiating patient-controlled analgesia and implements alternative methods of pain control Verifies allergies, administers prescribed medications and solutions, evaluates response to medications Entry 1 In PACU II 04/17/19 12:00:00 Discharge from PACU 04/17/19 15:20:00 II Outcomes Met? Yes Last Modified By: Jewell Carmona RN 04/17/19 21:31:21 Post-Care Text: The patient demonstrates knowledge of the expected response to the operative or invasive procedure The patient's care is consistent with the individualized perioperative plan of care The patient's right to privacy is maintained The patient's value system, lifestyle, ethnicity, and culture are considered, respected, and incorporated into the perioperative plan of care The patient participates in decisions affecting his or her perioperative plan of care. The patient is free from signs and symptoms of infection The patient has wound/tissue perfusion consistent with or improved from baseline levels established preoperatively The patient is at or returning to normothermia at the conclusion of the immediate postoperative period The patient's respiratory function is consistent with or improved from baseline levels established preoperatively The patient's cardiovascular status is consistent with or improved from baseline levels established preoperatively The patient's neurological status is consistent with or improved from baseline levels established preoperatively The patient demonstrates and/or reports adequate pain control throughout the perioperative period The patient received appropriate medication(s), safely administered during the perioperative period Finalized By: Jewell Carmona RN Document Signatures Signed By: Jewell Carmona RN 04/17/19 21:31 Normal [facility] Main OR Preoperative Recordo n 04-17-2019 Main OR Preoperative Record PreOp Document Type FT Summary Primary Physician: Johnny Mattson DO Finalized Date/Time: 04/17/19 08:23:45 Pt. Name: LORRAINE BRANHAM/Sex: 1970 Female Med Rec #: [id number] Physician: Johnny Mattson DO Financial #: [id number] Pt. Type: A Room/Bed: [facility]/ Admit/Disch: 04/17/19 05:44:44 - Institution: Case Times PreOp FT Pre-Care Text: Verifies consent for planned procedure, identifies individual values and wishes concerning care, includes family members in perioperative teaching Entry 1 Patient Times. In Pre Surgery 04/17/19 06:00:00 Out Pre Surgery 04/17/19 07:41:00 Outcomes Met? Yes Last Modified By: Iris Arteaga RN 04/17/19 08:23:33 Post-Care Text: The patient participates in decisions affecting his or her perioperative plan of care Finalized By: Iris Arteaga RN Document Signatures Signed By: Iris Arteaga RN 04/17/19 08:23 Normal [facility] Patient Education - Texton 0 04-17-2019 Patient Education - Text [place], [place] [facility] DISCHARGE INSTRUCTIONS: ACL RECONSTRUCTION Diet Begin with a liquid diet and advance to your normal diet as tolerated. Activity Until your first post-operative visit elevate you knee higher than your heart, whenever you are sitting or lying down. Knee swelling will gradually decrease after surgery. Increased swelling is usually a sign of over-activity and should be a signal for you to be less active and apply ice as needed. Your exercise program is the sarmiento to successful rehabilitation of your knee. Do the exercises daily as instructed. You will begin physical therapy after your first postoperative visit. You may bear weight on your operative leg, but you must use your crutches or walker for support when ambulating. This is important for protection of your knee after surgery. Your brace should remain locked in full extension at all times until your follow up visit. If you have the Continuous Passive Motion (CPM) machine at home, then you may remove the brace to use the machine. Start the machine at 0-60 degrees and increase by 5 degrees per day, up to 90 degrees maximum. Do not bend your knee past 90 degrees. Driving is legal, but if you are involved in an accident, you must be able to prove that you maintained full control of your vehicle. For this reason, it is advised that you do not drive until your strength returns. Increased Pain Usually this is the result of over-activity and should respond well to rest, ice and elevation. If this does not provide relief, take the pain medication as directed but do not return to activity. If severe pain persists despite rest, elevation and medication, contact your surgeon. You will be given a prescription for pain medication when you leave the hospital. Please inform us of any known drug allergy. If you have any problems with the medication, it should be discontinued and our office notified. The sensation of splashing of fluid inside the knee is not cause for concern. It represents residual fluids from surgery and they will be absorbed generally in the first few days. Elevation of the leg and application of an ice pack to the knee will minimize swelling and discomfort in the first 48 hours after surgery. Incisions The portals of entry may be sore and develop bruising over the next several days. The bruising eventually resolves and does not require any special care. There may be some numbness around the portals that can take several days or several weeks to resolve as the swelling subsides. Do not apply creams or lotions to your knee. Your portals will heal best if kept dry. Dressing A soft compression dressing has been applied to your knee. This dressing should be comfortable and absorb any leakage of fluid after surgery. Although the dressing may become moist or blood stained, this is not usually a cause for concern. If this persists beyond 2-3 days, notify your surgeon. Keep your bandage clean, dry, and in place until follow up. Precautions If you develop fever (101 degrees or above), increasing pain (not relieved by rest, elevation, ice and medication as prescribed), redness, or persistent swelling in your calves or feet that doesn't respond to elevation, please contact the office or the hospital. If you notice increasing drainage from the operative portals after the first few days, this should also be reported. You may have been prescribed aspirin after surgery. Take this as prescribed to help prevent blood clots. Return Visit Your post-operative follow-up appointment is generally between 5 and 7 days after surgery. You will be given an appointment card with this information. Do not hesitate to call the office or the hospital if any problems or questions arise before your appointment. Johnny Mattson DO [facility] [address] [place] [address] Reviewed: 09-25 [facility] Progress Note-Physicianon Progress Note-Physician Patient: LORRAINE BRANHAM Age: 49 years Sex: Female : 1970 Associated Diagnoses: None Author: Yehuda Fortune JR, DO Preoperative Information Anesthesia history: Patient History: Pt./ family denies any personal or family hx of problems/difficulties with anesthesia.. Re-eval prior to induction: Inital eval reviewed: No significant interval change, NPO 10 hours.. Review of Systems Constitutional: See nursing assessment.. Cardiovascular: Cardiac risk assessment performed. Pt. denies any significant change in their cv hx.. Respiratory: Pt. denies any signicant change in their respiratory status.. Neurologic: Pt. denies any acute neurological changes.. Health Status Allergies: Allergic Reactions (Selected) Severity Not Documented Bee Stings- Anaphylaxis. Nubain- Vomiting. Strawberries- Hives., Allergies (3) Active Reaction Bee Stings anaphylaxis Nubain Vomiting Strawberries Hives Current medications: (Selected) Inpatient Medications Ordered Cefazolin 3 gram IVPB: 3 gram = 100 mL, Soln-IV, IV Piggyback, PREOP, Routine, Start date 04/17/19 6:00:00 EST, 200 mL/hr, Infuse over 0.5 hour(s) Lactated Ringers IV Gisselle 1000 mL 1,000 mL: 1,000 mL, IV, 125 mL/hr, Routine, Start date 04/17/19 7:16:00 EST, 8 hour(s), Total volume (mL): 1,000, 2.39, m2 Lactated Ringers IV Gisselle 1000 mL 1,000 mL: 1,000 mL, IV, 150 mL/hr, Routine, Start date 04/17/19 6:00:00 EST, 6.7 hour(s), Total volume (mL): 1,000, 2.39, m2 Percocet 325 mg-5 mg Tab: 1 tab(s), Tab, Oral, q6hr PRN Pain - Moderate for 5 day(s), Stop date 04/22/19 7:15:00 EST, Routine, Start date 04/17/19 7:16:00 EST Percocet 325 mg-5 mg Tab: 2 tab(s), Tab, Oral, q6hr PRN Pain - Moderate for 5 day(s), Stop date 04/22/19 7:15:00 EST, Routine, Start date 04/17/19 7:16:00 EST Zofran 4 mg/2 mL Injection: 4 mg = 2 mL, Injection, IV Push, q4hr PRN Nausea/Vomiting, Routine, Start date 04/17/19 7:16:00 EST Prescriptions Prescribed Aspirin 81 mg Tab-EC: 162 mg = 2 tab(s), Oral, Daily, X 21 day(s), # 42 tab(s), Refills(s) 0, Pharmacy: [facility] Colace 100 mg Cap: 100 mg = 1 cap(s), Oral, BID, PRN for constipation, # 20 cap(s), Refills(s) 0, Pharmacy: [facility] Percocet 325 mg-5 mg Tab: See Instructions, as needed for pain, 40 tab(s), Refill(s) 0, 1-2 tab(s) Oral q4hr, [facility] naproxen 500 mg Tab: 500 mg = 1 tab(s), Oral, BID, with food, # 60 tab(s), Refills(s) 0, Pharmacy: [facility] Documented Medications Documented Alyacen : 1 tab(s), Oral, Daily, control/menstrual regulation Bety Back & Body 500 mg-32.5 mg oral tablet: 1 tab, Oral, q6hr, Pain cyclobenzaprine 10 mg Tab: 10 mg = 1 tab(s), Oral, BID, PRN for spasm gabapentin 300 mg Cap: 300 mg = 1 cap(s), Oral, BID, Pain ibuprofen: 800 mg, Oral, Daily, PRN as needed for pain, Medications (6) Active Scheduled: (1) ceFAZolin 3 gram 100 mL, IV Piggyback, PREOP Continuous: (2) Lactated Ringers 1,000 mL 1,000 mL, IV, 150 mL/hr Lactated Ringers 1,000 mL 1,000 mL, IV, 125 mL/hr PRN: (3) acetaminophen-oxycodon e 325 mg-5 mg Tab [F] 1 tab(s), Oral, q6hr acetaminophen-oxycodon e 325 mg-5 mg Tab [F] 2 tab(s), Oral, q6hr ondansetron 2 mg/mL Inj [F] 4 mg 2 mL, IV Push, q4hr Problem list: All Problems Tibial plateau fracture, right / SNOMED CT 0930794473 / Confirmed Fibromyalgia / SNOMED CT 885536469 / Confirmed Tear of anterior cruciate ligament of knee / SNOMED CT 071250058 / Confirmed right Resolved: H/O: meningitis / SNOMED CT 737246600, Active Problems (3) Fibromyalgia Tear of anterior cruciate ligament of knee Tibial plateau fracture, right Histories Past Medical History: No active or resolved past medical history items have been selected or recorded. Family History: No family history items have been selected or recorded. Procedure history: right knee arthroscopy with anterior cruciate ligament reconstruction using hamstring allograft, lateral meniscus repair on 12/05/2014 at 44 Years. Tonsillectomy and adenoidectomy (279016691). Appendectomy (665264155). Lumbar laminectomy and excision of intradural spinal lesion (8452253300). excision of tumor left hand and tendon repair. Social History Social & Psychosocial Habits Alcohol 12/01/2014 Risk Assessment: Low Risk Substance Abuse 12/01/2014 Risk Assessment: Denies Substance Abuse Tobacco 12/01/2014 Risk Assessment: Denies Tobacco Use . Physical Examination Vital Signs (last 24 hrs) Last Charted Temp Oral 36.8 DegC (APR 17:) Heart Rate Apical 88 bpm (APR 17:) Resp Rate 20 br/min (APR 17:) SBP 140 mmHg (APR 17:11) DBP H 97mmHg (APR 17:) SpO2 96 % (APR 17:) Airway: Normal oral/pharyngeal anatomy.. Respiratory: Adequate air exchange.. Cardiovascular: Adequate perfusion and function. Review / Management Results review: No qualifying data available . Plan [place] [employer]esthesiologists (ASA) physical status classification: Class II. Anesthetic Preoperative Plan Anesthesia: General. , Regional COMBINED FASCIA ILIACA/ SCIATIC NERVE BLOCK. Anesthetic plan, risks, benefits, and alternatives discussed with the patient and/or family. Pt. and/or family present and agree to proceed as planned.. Discussed the importance of abstaining from tobacco products, and offered counseling if desired. Normal [facility] Comment on above: Result Comment: Elec tronically Signed By: Yehuda Fortune JR, DO\.br\Date and Time Signed: 04/17/19 08:32 EST U BetaHcg Qualon 04-17-2019 HCG.beta subunit (U) [Moles/Vol] Negative Normal [facility] Comment on above: Performed By: #### 2 [id number] #### [facility] Laboratory [address] [place] [address] Coding Summary.on 04-02-2019 Coding Summary. CODING DATE: 04/02/2019 FINAL [facility] STATUS: Home (Routine DC) PAYOR: Government APC DESCRIPTION 5521 Level 1 Imaging without Contrast ADMIT DX: REASON FOR VISIT DX: Z01.818 Encounter for other preprocedural examination FINAL DX: PRINCIPAL: Z01.818 Encounter for other preprocedural examination SECONDARY: PYMT PROC APC STAT DESCRIPTION DOCTOR NAME DATE NOTE: The code number assigned matches the documented diagnosis and / or procedure in the patient's chart. However, the narrative phrase printed from the coding software may appear abbreviated, or result in slightly different terminology. Coded By: Nettie Durbin CphT Date Saved: 04/02/2019 11:20 am Normal [facility] XR Chest 2 Viewson 9 XR Chest 2 Views Exam Date/Time: 04/01/2019 09:37 EST Reason for Exam: Pre Op Report IMPRESSION: NO EVIDENCE OF ACTIVE CHEST DISEASE. CLINICAL HISTORY: Pre Op. COMMENT: The heart is normal in size. The mediastinum is unremarkable. The lungs appear clear. No infiltration nor pleural effusion is evident. FINAL REPORT Dictated: 04/02/2019 9:19 am Mundo Garcia M.D. Signed (Electronic Signature): 04/02/2019 9:19 am Signed by: Mundo Garcia M.D. Transcribed by: LORY Technologist: AP Normal [facility] BUNon 04-01-2019 Urea nitrogen [Mass/Vol] 11 mg/dL Normal 5-21 [facility] Comment on above: Performed By: #### 2 [id number], 6439364, 4977373, 16666356, 9069090, 4076507 #### [facility] [address] [place] [address] CBC w/Indiceson 04-01-2019 Erythrocyte distribution width (RBC) [Ratio] 13.3 % Normal 10.9-14.2 [facility] Comment on above: Performed By: #### 2 247220, 3149281, 6790167, 95138543, 1966752, 2836511 #### [facility] [address] [place] [address] Hematocrit (Bld) [Volume fraction] 41.3 % Normal 34.0-46.0 [facility] Comment on above: Performed By: #### 2 802580, 6092654, 0382873, 27847700, 7825867, 7520878 #### [facility] [address] [place], [place] [id number] Hemoglobin (Bld) [Mass/Vol] 14.0 g/dL Normal 12.0-16.0 [facility] Comment on above: Performed By: #### 2 168904, 3430069, 7974279, 59082532, 9748611, 8141753 #### [facility] [address] [place] [address] MCH (RBC) [Entitic mass] 31.3 pg Normal 27.0-34.0 [facility] Comment on above: Performed By: #### 2 025478, 6544679, 0925139, 72344439, 5833972, 7704774 #### [facility] [address] [place] [address]8312 MCHC (RBC) [Mass/Vol] 33.8 g/dL Normal 31.4-36.0 [facility] Comment on above: Performed By: #### 2 800531, 7414184, 7406602, 18788558, 2787957, 3117065 #### [facility] [address] [place] [address] MCV (RBC) [Entitic vol] 92.6 fL Normal 80.0-100.0 [facility] Comment on above: Performed By: #### 2 066514, 3200691, 8068335, 66417960, 7143118, 3380876 #### [facility] [address] [place] [address]343 Platelet mean volume (Bld) [Entitic vol] 7.3 fL Normal 6.4-10.8 [facility] Comment on above: Performed By: #### 2 177002, 5649250, 7432808, 72111428, 9239129, 9987904 #### [facility] [address] [place] [address] Platelets (Bld) [#/Vol] 411.0 E9/L Normal 150.0-500.0 [facility] Comment on above: Performed By: #### 2 573293, 7849729, 2438268, 48682012, 5455931, 5446413 #### [facility] [address] [place] [address] 16395 RBC (Bld) [#/Vol] 4.5 E12/L Normal 4.3-5.9 [facility] Comment on above: Performed By: #### 2 870314, 2628115, 2471457, 80964044, 9713115, 8656957 #### [facility] [address] [place] [address] WBC corrected for nucl RBC Auto (Bld) [#/Vol] 8.2 E9/L Normal 4.0-11.0 [facility] Comment on above: Performed By: #### 2 200984, 8555984, 1544983, 82385827, 9742519, 5480833 #### [facility] [address] [place] [address] Creatinineon 04-01-2019 Creatinine [Mass/Vol] 1.1 mg/dL Normal 0.5-1.3 [facility] Comment on above: Performed By: #### 2 140075, 4883842, 5344391, 11303963, 0605512, 2536383 #### [facility] [address] [place] [address] Glucoseon 04-01-2019 Glucose [Mass/Vol] 105 mg/dL Normal 55-199 [facility] Comment on above: Performed By: #### 2 331836, 1243199, 4919441, 49206097, 4079920, 5315241 #### [facility] [address] [place] [address] Lyteson 04-01-2019 Anion gap [Moles/Vol] 16 mmol/L Normal 6-16 [facility] Comment on above: Performed By: #### 2 329297, 4041257, 8068537, 09042145, 9653137, 1627512 #### [facility] [address] [place] [address] CO2 [Moles/Vol] 20 mmol/L Low 21-31 [facility] Comment on above: Performed By: #### 2 708952, 0280060, 3371902, 00612430, 7778646, 4698264 #### [facility] [address] [place] [address] Chloride [Moles/Vol] 109 mmol/L Normal 101-111 [facility] Comment on above: Performed By: #### 2 993707, 3449194, 2297317, 90822851, 6611191, 9328437 #### [facility] [address] [place] [address] Potassium [Moles/Vol] 3.9 mmol/L Normal 3.5-5.3 [facility] Comment on above: Performed By: #### 2 653891, 8812506, 4916421, 79689324, 6284311, 6796020 #### [facility] [address] [place] [address] Sodium [Moles/Vol] 141 mmol/L Normal 135-145 [facility] Comment on above: Performed By: #### 2 795573, 0775748, 4026036, 68065867, 2538275, 8616783 #### [facility] [address] [place] [address] eGFRon 04-01-2019 GFR/1.73 sq M predicted among blacks MDRD (S/P/Bld) [Vol rate/Area] mL/min/{1.73_m2} Normal >=59 [facility] Comment on above: Order Comment: Order added by Discern Expert. Result Comment: eGFR is race adjusted. AA=. Performed By: #### 2 056333, 9223354, 9378041, 81413231, 2697163, 6754204 #### [facility] [address] [place] [address] GFR/1.73 sq M predicted among non-blacks MDRD (S/P/Bld) [Vol rate/Area] 53 mL/min/1.73 m2 Low >=59 [facility] Comment on above: Order Comment: Order added by Discern Expert. Result Comment: Specialized Developer richard kidney disease could be indicated at eGFR's of less than 60 mL/min/1.73m2. Kidney failure is indicated at less than 15 mL/min/1.73m2. Performed By: #### 2 354055, 2639687, 6214442, 30487614, 7588785, 7682356 #### [facility] [address] [place] [address] Vital Signs Date Time Vital Sign Value Performing Clinician Piperi kenyony 05-22-2023 08:05-0500 Body height 171.5 cm Johnny [employer] Work Phone: [facility] [employer] 05-22-2023 08:05-0500 Body mass index (BMI) [Ratio] 45.37 kg/m2 [employer] Work Phone: [facility] [employer] 05-22-2023 08:05-0500 Body temperature 97.11 [degF] [employer] Work Phone: [facility] 05-22-2023 08:05-0500 Body weight 133.36 kg Johnny [employer] Work Phone: [facility] [employer] 05-15-2023 08:09-0500 Body height 171.5 cm Johnny [employer] Work Phone: [facility] [employer] 05-15-2023 08:09-0500 Body mass index (BMI) [Ratio] 45.37 kg/m2 [employer] Work Phone: [facility] 05-15-2023 08:09-0500 Body temperature 97.11 [degF] [employer] Work Phone: [facility] 05-15-2023 08:09-0500 Body weight 133.36 kg Johnny Mattson DO Work Phone: [facility] Encounters Encounter Date Encounter Type Care Provider Facility Start: 05-24-2023 Chart abstracting Johnny vargas DO Work Phone: [facility] Start: 05-22-2023 Bamboo flowsheet Johnny Mattson DO Work Phone: [facility] Start: 05-22-2023 Bamboo flowsheet Johnny Mattson DO Work Phone: [facility] Start: 05-22-2023 End: 05-22-2023 ambulatory JOHNNY MATTSON Not Available Start: 05-22-2023 End: 05-22-2023 Patient encounter procedure Johnny Mattson DO Work Phone: [facility] Comment on above: Primary osteoarthrit is of right knee (Primary Dx) Start: 05-19-2023 Chart abstracting Johnny Bowers n DO Work Phone: [facility] Start: 05-15-2023 Chart abstracting Johnny Bowers n DO Work Phone: [facility] Start: 05-15-2023 End: 05-15-2023 ambulatory JOHNNY MATTSON Not Available Start: 05-15-2023 End: 05-15-2023 Patient encounter procedure Johnny Mattson DO Work Phone: [facility] Comment on above: Primary osteoarthrit is of right knee (Primary Dx) Start: 05-09-2023 End: 05-09-2023 ambulatory OUMOU CORTES Not Available Start: 05-03-2023 End: 05-03-2023 ambulatory MOISÉS LEWIS Not Available Start: 04-24-2023 End: 04-24-2023 ambulatory TIFFANIE MASTERS Not Available Start: 03-28-2023 End: 03-28-2023 ambulatory JOHNNY MATTSON Not Available Start: 07-15-2022 End: 07-16-2022 ambulatory TIFFANIE MASTERS Facility:[facility] Start: 02-16-2022 End: 02-17-[address] MOISÉS LEWIS . Facility:[facility] Start: 02-07-2022 End: 02-07-[address] MOISÉS LEWIS . Facility:[facility] Start: 11-09-2021 End: 11-10-[address] MOISÉS LEWIS . Facility:[facility] Procedures Date Procedure Procedure Detail Performing Clinician Start: 05-22-2023 Arthrocentesis aspir&/inj major jt/bursa w/o us Johnny Mattson DO Work Phone: Start: 05-15-2023 Arthrocentesis aspir&/inj major jt/bursa w/o us Johnny Mattson DO Work Phone: Start: 02-14-2023 History of decompression of median nerve Status post carpal tunnel release Johnny Mattson DO Work Phone: Start: 02-16-2022 Mammography Johnny Mattson DO Work Phone: Plan of Treatment Date Care Activity Detail Author Start: 01-10-2024 Screening for malign ant neoplasm of colon Colorectal Cancer Screening [facility] Comment on above: Postponed from 01/15 (Patient Refused) Start: 05-29-2023 End: 05-29-2023 Patient encounter procedure 05/29/2023 7:45 AM EST Procedure Visit [facility] [address] [place] [phone] Johnny Mattson DO [address] [place] [place] [address] [facility] Start: 05-22-2023 End: 05-22-2023 Patient encounter procedure 05/22/2023 7:45 AM EST Procedure Visit [facility] [address] [place] [phone] Johnny Mattson DO [address] [place] [address] [facility] Start: 05-15-2023 End: 05-15-2023 Patient encounter procedure 05/15/2023 8:15 AM EST Office Visit [facility] [address] [place] [address] Johnny Mattson, DO [address] [place] [address] [facility] Start: 02-16-2023 Screening for malign ant neoplasm of breast Mammogram [facility] Start: 2001 Screening for malign ant neoplasm of cervix [facility] Start: 01-16-1992 Screening for malign ant neoplasm of cervix Pap Smear [facility] Start: 1971 Screening for malign ant neoplasm of colon [facility] Immunizations Immunization Date Immunization Notes Care Provider Fa cility 04-24-2023 influenza, injectabl e, quadrivalent, preservative free Johnny Mattson DO Work Phone: [facility] 05-12-2022 influenza, injectabl e, quadrivalent, preservative free Johnny Mattson DO Work Phone: [facility] 08-22-2021 tetanus toxoid, redu kishor diphtheria toxoid, and acellular pertussis vaccine, adsorbed Johnny Mattson DO Work Phone: [facility] 01-22-2019 influenza, injectabl e, quadrivalent, preservative free Johnny Mattson DO Work Phone: [facility] 05-18-2018 influenza, seasonal, injectable, preservative free Johnny Mattson DO Work Phone: [facility] 01-26-2017 influenza, injectabl e, quadrivalent, preservative free Johnny Mattson DO Work Phone: [facility] 01-29-2016 influenza virus vacc ine, split virus (incl. purified surface antigen) Johnny Mattson DO Work Phone: [facility] Payers Date Payer Category Payer Medicaid [employer] [id number] 2022-Present [address] [place] [address] [id number] 2022 [employer] ( and others) [facility] [id number] 2022-Present [address] [place] [address] [id number] 2022 [employer] ( and others) [id number] 2022 Medicaid [id number] 1971 Unknown [id number]. 593 1971 Unknown [id number] [id number]. 593 1971 Unknown [id number] [id number]. 593 1971 Unknown [id number] [id number]. 593 1971 Unknown [id number] 2.16.840.1.204933.3.579.2. 1259 1971 Unknown [id number] 2.16.840.1.025099.3.579.2. 1259 1971 Unknown [id number] 2.16.840.1.459552.3.579.2. 1259 1971 Unknown [id number] 2.16.840.1.500331.3.579.2. 1259 1971 Unknown [id number] 2.16.840.1.138541.3.579.2. 1259 1971 Unknown [id number] 2.16.840.1.608209.3.579.2. 1259 1971 Unknown [id number] [id number]. 1259 1959 [employer] ( and others) [id number] 1959 Unknown [id number] Social History Date Type Detail Facility Start: 05-17-2023 Tobacco smoking stat us NHIS Never smoked tobacco [facility] Start: 08-24-2022 Tobacco use and exposure Smoke less tobacco non-user [facility] Start: 05-03-2023 End: 05-22-2023 Alcohol intake Current drinker of alcohol (finding) [facility] Start: 04-23-2023 End: 04-24-2023 [facility] of Social function [facility] Start: 04-23-2023 End: 04-24-2023 Humiliation, Afraid, Rape, and Kick questionnaire [HARK] [facility] Within the last year , have you been afraid of your partner or ex-partner? No [facility] Emotionally Abused Not on file [facility] Do you belong to any clubs or organizations such as faith groups, unions, fraternal or athletic groups, or school groups? Yes [facility] Are you now , , , , never or living with a partner? Living with partner [facility] How often to you hav e a drink containing alcohol? 2-4 times a month [facility] How many standard dr inks containing alcohol do you have on a typical day? 3 or 4 [facility] How often do you hav e 6 or more drinks on 1 occasion? Never [facility] How hard is it for y ou to pay for the very basics like food, housing, medical care, and heating Not very hard [facility] Do you feel stress - tense, restless, nervous, or anxious, or unable to sleep at night because your mind is troubled all the time - these days [OSQ] To some extent [facility] (I/We) worried breezy er (my/our) food would run out before (I/we) got money to buy more. Never true [facility] Start: 03-28-2023 Alcohol Comment When I feel like dri nking [facility] Start: 1970 Sex Assigned At Not on file [facility] Start: 08-29-2022 Sexual orientation Heterosexual (petar millard) [facility] How often to you hav e a drink containing alcohol? Monthly or less [facility] How many standard dr inks containing alcohol do you have on a typical day? 1 or 2 [facility] How often do you hav e 6 or more drinks on 1 occasion? Less than monthly [facility] Medical Equipment Procedure Code Equipment Code Equipment Origin al Text Equipment Identifier Dates Use as instructed [id number] Start: 04-24-2023 End: 04-23-2024 History of Present illness Narrative 05-22-2023 SEPIDEH Luis - 05/22/2023 7:45 AM ESTRoxana Swenson - 05/22/2023 7:45 AM EST Note Date & Type Note Facility 05-22-2023 History of Presen t illness Narrative Associated Order(s): L Inj/Asp: R knee Post-Procedure Diagnose(s): Primary osteoarthritis of right knee L Inj/Asp: R knee on 05/22/2023 8:07 AM Indications: diagnostic evaluation Details: 22 G needle Medications: 2 mL sodium hyaluronate 16.8 MG/2ML Consent was given by the patient. Images from the original note were not included. Lorraine Gagnon is a 53 y.o. female presents with chief complaint of Pain of the Right Knee (iGelsyn 2/3 ) HPI: Lorraine is here today for her second Gel-Syn injection into the right knee. She denies adverse effects following the first injection. SUBJECTIVE: MEDICATIONS: Current Outpatient Medications Medication Instructions albuterol HFA 90 mcg/act inhaler Every 4 hours DULoxetine (CYMBALTA) 30 mg, Oral, Daily, Do not crush or chew. EPINEPHrine (Epipen) 0.3 MG/0.3ML injection syringe Every 24 hours norethindrone (NUHA-BE) 0.35 mg, Oral, Every 24 hours omeprazole (PriLOSEC) [address] capsule Every 24 hours ALLERGIES: Allergies Allergen Reactions Bee Venom Shortness of breath Nalbuphine Other Reaction(s): Vomiting, Vomiting, chest pains Fulda Extract Hives SURGICAL HISTORY: Past Surgical History: Procedure Laterality Date ANTERIOR CRUCIATE LIGAMENT REPAIR Right 2014 Dr Mattson ANTERIOR CRUCIATE LIGAMENT REPAIR Right 04/17/2019 JAB APPENDECTOMY CARPAL TUNNEL RELEASE 2012 LUMBAR DISCECTOMY 2007 L4-5, L5-S1 RT Dr Bolanos OTHER SURGICAL HISTORY Procedure:short term IV antibiotic therapy;Disease:Meningitis, Viral PELVIC LAPAROSCOPY 2007 TONSILLECTOMY TUBAL LIGATION 10/16/2020 with ablation WRIST MASS EXCISION Left 2012 FAMILY HISTORY: Family History Problem Relation Name Age of Onset Cancer Mother Stroke Father Dad Cancer Father Dad Cancer Maternal Grandmother Grandma Betsey Diabetes Maternal Grandfather Grandpa Jv Cancer Maternal Grandfather Grandpa Jv Mental illness Paternal Grandmother Diabetes Paternal Grandfather Papa Colon cancer Other Family Hx Diabetes Sibling Heart disease Son Heart disease Daughter SOCIAL HISTORY: Social History Tobacco Use Smoking status: Never Smokeless tobacco: Never Vaping Use Vaping Use: Never used Substance Use Topics Alcohol use: Yes Comment: When I feel like drinking Drug use: Never Depression: Not at risk (04/24/2023) PHQ-2 PHQ-2 Score: 0 REVIEW OF SYMPTOMS: The review of systems, history and current medications list are all reviewed today. OBJECTIVE: Visit Vitals Temp 97.1 F Ht 5' 7.5 Wt 294 lb LMP (LMP Unknown) BMI 45.37 kg/m OB Status Postmenopausal Smoking Status Never BSA 2.52 m Physical Exam The previous injection is benign. There is no sign of infection. ASSESSMENT AND PLAN: Assessment/Plan 53-year-old left hand dominant female: 1. Cubital tunnel syndrome, medial and lateral epicondylitis right elbow. 2. Carpal tunnel syndrome right hand. 3. Post-traumatic osteoarthrosis right knee, history of revision ACL reconstruction in 2019. After informed consent and using sterile technique, the anterolateral aspect of the right knee was prepped with alcohol and Betadine. The skin was anesthetized with ethyl chloride and the knee was then injected with a mixture of 2 mL of Gel-Syn #2 with a 22-gauge 1-1/2 inch needle. The patient tolerated this well. A Band-Aid was applied. The patient was instructed to ice the knee and to watch for any signs of infection including redness, increased pain in the knee, drainage from the injection site, fever, chills, etc. The patient was instructed to call the office if he/she experiences any adverse reaction from the injection. She will return next week for her third and final injection. Johnny Mattson D.O. documented in this encounter [facility] History of Present illness Narrative 05-15-2023 VIRI AustinT - 05/15/2023 8:15 AM ESTRoxana Swenson - 05/15/2023 8:15 AM EST Note Date & Type Note Facility 05-15-2023 History of Presen t illness Narrative Associated Order(s): L Inj/Asp: R knee Post-Procedure Diagnose(s): Primary osteoarthritis of right knee L Inj/Asp: R knee on 05/15/2023 8:28 AM Indications: pain Details: 21 G needle, lateral approach Medications: 2 mL sodium hyaluronate 16.8 MG/2ML Consent was given by the patient. Images from the original note were not included. Lorraine Gagnon is a 53 y.o. female presents with chief complaint of Pain of the Right Elbow, Pain of the Left Elbow, and Injections of the Right Knee (Gelsyn #1/) HPI: Lorraine is a 53-year-old left hand dominant female here to review the electrodiagnostic studies for the upper extremities as well as to begin a series of three Gel-Syn injections into the right knee. Her last visco supplementation was administered 10/03/2022 and consisted of Durolane. This did provide improvement in her symptoms. Lorraine had EMG nerve conduction studies performed by Dr. Cortes on 05/09/2023. This showed bilateral carpal tunnel syndrome mild in degree. She was started on Cymbalta by Dr. Cortes which she has been taking as prescribed. Lorraine is still complaining of pain primarily along the posterior medial aspect of the right elbow. 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 She still complains to have numbness and tingling in the right hand affecting all digits. Lorraine has a history of decompression of the median and ulnar nerves with excision of a soft tissue mass from the left hand performed by Dr. Bolanos 12/28/2011. She has some chronic numbness in the left small finger but otherwise is doing well with the left hand. SUBJECTIVE: MEDICATIONS: Current Outpatient Medications Medication Instructions albuterol HFA 90 mcg/act inhaler Every 4 hours DULoxetine (CYMBALTA) 30 mg, Oral, Daily, Do not crush or chew. EPINEPHrine (Epipen) 0.3 MG/0.3ML injection syringe Every 24 hours etodolac (LODINE) 400 mg, Oral, 2 times daily PRN gabapentin (NEURONTIN) 300 mg, Oral, Every 12 hours Liraglutide -Weight Management (Saxenda) 18 MG/3ML solution pen-injector Inject 0.6 mg under the skin Daily for 7 days, THEN 1.2 mg Daily for 7 days, THEN 1.8 mg Daily for 7 days, THEN 2.4 mg Daily for 7 days. norethindrone (DEBLITANE) 0.35 mg, Oral, Daily norethindrone (NUHA-BE) 0.35 mg, Oral, Every 24 hours omeprazole (PriLOSEC) [address] capsule Every 24 hours pen needle 32G x 5 mm misc Use as instructed ALLERGIES: Allergies Allergen Reactions Bee Venom Shortness of breath Nalbuphine Other Reaction(s): Vomiting, Vomiting, chest pains Fulda Extract Hives SURGICAL HISTORY: Past Surgical History: Procedure Laterality Date ANTERIOR CRUCIATE LIGAMENT REPAIR Right 2014 Dr Mattson ANTERIOR CRUCIATE LIGAMENT REPAIR Right 04/17/2019 JAB APPENDECTOMY CARPAL TUNNEL RELEASE 2012 LUMBAR DISCECTOMY 2007 L4-5, L5-S1 RT Dr Bolanos OTHER SURGICAL HISTORY Procedure:short term IV antibiotic therapy;Disease:Meningitis, Viral PELVIC LAPAROSCOPY 2008 TONSILLECTOMY TUBAL LIGATION 10/16/2020 with ablation WRIST MASS EXCISION Left 2011 FAMILY HISTORY: Family History Problem Relation Name Age of Onset Cancer Mother Stroke Father Dad Cancer Father Dad Cancer Maternal Grandmother Grandma Betsey Diabetes Maternal Grandfather Grandpa Jv Cancer Maternal Grandfather Grandpa Jv Mental illness Paternal Grandmother Diabetes Paternal Grandfather Papa Colon cancer Other Family Hx Diabetes Sibling Heart disease Son Heart disease Daughter SOCIAL HISTORY: Social History Tobacco Use Smoking status: Never Smokeless tobacco: Never Vaping Use Vaping Use: Never used Substance Use Topics Alcohol use: Yes Comment: When I feel like drinking Drug use: Never Depression: Not at risk (04/24/2023) PHQ-2 PHQ-2 Score: 0 REVIEW OF SYMPTOMS: The review of systems, history and current medications list are all reviewed today. OBJECTIVE: Visit Vitals Temp 97.1 F Ht 5' 7.5 Wt 294 lb LMP (LMP Unknown) BMI 45.37 kg/m OB Status Postmenopausal Smoking Status Never BSA 2.52 m Physical Exam She is alert and oriented, well nourished, well hydrated female in no acute distress. Mood and affect are appropriate. She is ambulating independently. She walks with a non antalgic gait. RIGHT ELBOW The skin is warm, dry and intact. There is no swelling. There is no ecchymosis. She has full flexion and extension. Full pronation and supination. Ulnar nerve does not sublux with range of motion. She is tender over the cubital tunnel, medial epicondyle and flexor pronator origin. Positive ulnar nerve compression test. She is tender over the lateral epicondyle and extensor origin. Pain with resisted long finger extension. Positive Cozen's. RIGHT HAND AND WRIST The skin is warm, dry and intact. There is no atrophy to the thenar or hypothenar eminence or 1st dorsal web space. No soft tissue masses. She can flex all fingers into the palm. She has slightly decreased manager balance strength when compared to the left hand. Negative Froment. Negative Wartenberg. Positive carpal compression. Negative Tinel's. Brisk capillary refill and palpable radial pulse. LEFT HAND AND WRIST She has well-healed incision at the hypothenar eminence extending across the volar wrist crease. There is no soft tissue mass. There is no atrophy to the thenar or hypothenar eminence or 1st dorsal web space. Decreased sensation over the small finger when compared to the remainder of the digits. Good manager balance strength. No triggering of any digits. The hand is well-perfused. RIGHT KNEE Incisions are benign and well-healed. There is no soft tissue swelling. No effusion. Range of motion is 0-115 degrees. She is tender at the medial and lateral patellar facets. No patellar instability. Rory's and anterior drawer are stable. Negative posterior drawer. There is no varus or valgus instability. He is tender at the medial and lateral joint lines. ASSESSMENT AND PLAN: Assessment/Plan 53-year-old left hand dominant female: 1. Cubital tunnel syndrome, medial and lateral epicondylitis right elbow. 2. Carpal tunnel syndrome right hand. 3. Post-traumatic osteoarthrosis right knee, history of revision ACL reconstruction in 2019. I reviewed the history, physical examination, radiographs and diagnosis with the patient. After informed consent and using sterile technique, the superolateral aspect of the right knee was prepped with alcohol and Betadine. The skin was anesthetized with ethyl chloride and the knee was then injected with a mixture of 2 mL of Gel-Syn #1 with a 22-gauge 1-1/2 inch needle. The patient tolerated this well. A Band-Aid was applied. The patient was instructed to ice the knee and to watch for any signs of infection including redness, increased pain in the knee, drainage from the injection site, fever, chills, etc. The patient was instructed to call the office if he/she experiences any adverse reaction from the injection. She will return next week for her second injection. I explained that if her symptoms at the right hand and elbow bother her enough, then she can consider surgery which would consist of a decompression of the median nerve at the right wrist with decompression of the ulnar nerve and possible transposition at the right elbow. I explained that this would likely not improve any discomfort she has laterally as a result of her extensor tendinosis. A total of 30 to 39 minutes was spent on this patient encounter which included chart review, check in, nurse triage, history taking, physical examination, diagnostic study review, patient counseling and discussion, entering information into the patient's medical record, and coordinating patient care. Johnny Mattson D.O. documented in this encounter [facility] Clinical Note 11-11-2021 Note Date & Type Note Facility 11-11-2021 Note FINDINGS: Comparison made with prior examination October 20, 2021. Progressive callous formation about the normally aligned transverse fracture 4th metatarsal mid shaft. No new fracture. Slight cortical thickening proximal 5th metatarsal bone, unchanged. IMPRESSION: Healing 4th metatarsal bone fracture, normal anatomic alignment Report reported and signed by Steven Jackson on 11/11/2021 [address] [facility] Respiratory Equipment Assistant Evaluation note Note Date & Type Note Facility Evaluation note Diagnosis Primary osteoarthritis of right knee- Primary documented in this encounter [facility] Evaluation note Note Date & Type Note Facility Evaluation note Diagnosis Primary osteoarthritis of right knee- Primary documented in this encounter [facility] Summary Purpose Family History No Family History Records FoundNo Family History Records FoundNo Family History Records FoundNo Family History Records Found Advance Directives No Advanced Directives Records FoundNo Advanced Directives Records FoundNo Advanced Directives Records FoundNo Advanced Directives Records Found Procedure Findings Note Patient: LORRAINE BRANHAM Age: 49 years Sex: Female : 1970 Associated Diagnoses: None Author: Yehuda Fortune JR, DO Postoperative Information Post Operative Note: Post Anesthesia Care Unit. Anesthetic utilized: General, Monitored anesthesia care. Health Status Allergies: Allergic Reactions (Selected) Severity Not Documented Bee Stings- Anaphylaxis. Nubain- Vomiting. Strawberries- Hives. Current medications: (Selected) Prescriptions Prescribed Aspirin 81 mg Tab-EC: 162 mg = 2 tab(s), Oral, Daily, X 21 day(s), # 42 tab(s), Refills(s) 0, Pharmacy: [facility] Colace 100 mg Cap: 100 mg = 1 cap(s), Oral, BID, PRN for constipation, # 20 cap(s), Refills(s) 0, Pharmacy: [facility] Percocet 325 mg-5 mg Tab: See Instructions, as needed for pain, 40 tab(s), Refill(s) 0, 1-2 tab(s) Oral q4hr, [facility] naproxen 500 mg Tab: 500 mg = 1 tab(s), Oral, BID, with food, # 60 tab(s), Refills(s) 0, Pharmacy: [facility] Doc (more content not included)... Reason for Referral Specialty Diagnoses / Procedures Referred By Contac t Referred To Contact Orthopaedic Surgery Diagnoses Primary osteoarthritis of right knee Procedures L Inj/Asp: R knee Johnny Mattson DO [address] [place] [address] Referral ID Status Reason Start Date Expiration Date Visits Re quested Visits Authorized [id number] Closed 05/15/2023 11/11/2023 1 1 Referral ID Status Reason Start Date Expiration Date Visits Re quested Visits Authorized [id number] Closed 05/22/2023 11/18/2023 1 1 Additional Source Comments INFORMATION SOURCE (unrecogn ized section and content) DATE CREATED AUTHOR 05/14/2019 [facility] DATE CREATED AUTHOR AUTHOR'S ORGANIZ ATION 11/12/2021 [facility] dical Specialist DATE CREATED AUTHOR AUTHOR'S ORGANIZ ATION 07/24/2022 [facility] DATE CREATED AUTHOR AUTHOR'S ORGANIZ ATION 05/22/2023 [facility] dical Specialists EPIC Care Teams (unrecognized sec tion and content) Diazo Technician Relationship Specialty Start Date End Date Adali Jean MD [address] [place] [address] PCP - General Family Medicine 08/19/22 Tiffanie Masters NP [address] [place] [address] Nurse Practitioner Family Medicine 08/19/22 Diazo Technician Relationship Specialty Start Date End Date Adali Jean MD [address] [place] [address] PCP - General Family Medicine 08/19/22 Tiffanie Masters NP [address] [place] [address] Nurse Practitioner Family Medicine 08/19/22 Diazo Technician Relationship Specialty Start Date End Date Adali Jean MD [address] [place] [address] PCP - General Family Medicine 08/19/22 Tiffanie Masters NP [address] [place] [address] Nurse Practitioner Family Medicine 08/19/22 Diazo Technician Relationship Specialty Start Date End Date Adali Jean MD [address] [place] [address] PCP - General Family Medicine 08/19/22 Tiffanie Masters NP [address] [place] [address] Nurse Practitioner Family Medicine 08/19/22 Diazo Technician Relationship Specialty Start Date End Date Adali Jean MD [address] [facility] [place], [place] [id number] PCP - General Family Medicine 08/19/22 Tiffanie Masters NP [address] [place], [place] [id number] Nurse Practitioner Family Medicine 08/19/22 Reason for Visit (unrecogniz ed section and content) Reason Comments Pain Injections Gelsyn #1 Reason Comments Pain iGelsyn 2/3 FOR RECORDS PERTAINING TO PATIENTS WHO ARE OR HAVE BEEN ENROLLED IN A CHEMICAL DEPENDENCY/SUBSTANCEABUSE PROGRAM, SOME INFORMATION MAY BE OMITTED. This clinical summary was aggregated from multiple sources. Caution should be exercised in using it in the provision of clinical care. This summary normalizes information from multiple sources, and as a consequence, information in this document may materially change the coding, format and clinical context of patient data. In addition, data may be omitted in some cases. CLINICAL DECISIONS SHOULD BE BASED ON THE PRIMARY CLINICAL RECORDS. [facility] [employer] [facility]. provides no warranty or guarantee of the accuracy or completeness of information in this document.
== END 2023-05-26 07:39 | disposition home or self-care (01) ==
LOC: MAMMO 07:38
PROVIDERS: PCP Family Medicine; Visit Provider Obstetrics & Gynecology
DX: Z12.31 Encounter for screening mammogram for malignant neoplasm of breast (principal)
CPT/HCPCS: 77063; 77067